=== PATIENT | male | born 1990 | race Caucasian/White ===

== ENCOUNTER 2021-10-01 03:17 | Emergency (ER) | payer OTHER ==
[~2021-10-01] VITALS: Ht 185.4 cm; Wt 83.9 kg
[2021-10-01 03:27] VITALS: BP_SYST 108
--- NOTE | 2021-10-01 03:30 | NUR ---
MD KEV AT BEDSIDE.
[2021-10-01 03:32] VITALS: BP_SYST 108
--- NOTE | 2021-10-01 03:32 | NUR ---
Patient triaged and placed in [facility]. VSS and patient appears in no acute distress at this time. Accompanied by POLICE MD notified of need for MSE.
--- NOTE | 2021-10-01 05:05 | NUR ---
Patient given written and verbal discharge instructions and verbalizes understanding. ER MD discussed with patient the results and treatment provided. Patient in stable condition. ID arm band removed. NO Rx given. Patient educated on pain management and to follow up with PMD. Pain Scale 0/10. Opportunity for questions provided and answered. PT TO BE RELEASED TO CUSTODY OF FAMILY.
== END 2021-10-01 05:05 | disposition home or self-care (01) ==
LOC: SED 03:17
DX: Z04.3 Encounter for examination and observation following other accident (principal); V49.49XA Driver injured in collision with other motor vehicles in traffic accident, initial encounter; Y93.89 Activity, other specified; Y92.89 Other specified places as the place of occurrence of the external cause; Y99.8 Other external cause status
CPT/HCPCS: 99283